=== PATIENT | male | born 1970 | race African-American/Black ===

== ENCOUNTER 2017-05-06 16:28 | Emergency (ER) | payer OTHER ==
[~2017-05-06] VITALS: Ht 188 cm; Wt 113.4 kg
== END 2017-05-06 18:35 | disposition home or self-care (01) ==
LOC: CED 16:28 → CFTX 16:28
DX: S20.372A Other superficial bite of left front wall of thorax, initial encounter (principal); S20.472A Other superficial bite of left back wall of thorax, initial encounter; S60.222A Contusion of left hand, initial encounter; S60.011A Contusion of right thumb without damage to nail, initial encounter; Z23 Encounter for immunization; T14.8 Other injury of unspecified body region; Y04.0XXA Assault by unarmed brawl or fight, initial encounter; Y92.9 Unspecified place or not applicable
CPT/HCPCS: 90471; 90715; 99283